=== PATIENT | female | born 1980 | race American Indian/Alaskan Native ===

== ENCOUNTER 2017-02-28 19:53 | Emergency (ER) | payer MEDICAID ==
[2017-03-01 00:13] VITALS: BP 110/69
[2017-03-01] MEDS ORDERED: PHENERGAN/CODEINE 6.25-10 MG/5ML PO ONE (01:09)
[2017-03-01] MEDS ORDERED: TORADOL IM ONE (01:09)
--- NOTE | 2017-03-01 01:14 | Emergency Department Report ---
- General Chief Complaint: Upper Respiratory Infection Stated Complaint: HEAD COLD, HEADACHES Source: patient Mode of arrival: Ambulatory Limitations: No Limitations - History of Present Illness Initial Comments: 36 year old female presents to ED with runny nose, congestion, headache, productive cough and bodyaches. patient denies fevers or sore throat. patient is stable, neurologically intact and in no acute distress. patient has no history of COPD or diabetes. MD Complaint: cough, rhinorrhea, nasal congestion -: Gradual Severity: mild Quality: other (congestioni) Consistency: constant Associated Symptoms: chills, headache, rhinorrhea, nasal congestion, cough. denies: chest pain, shortness of breath, abdominal pain, nausea, vomiting - Related Data Previous Rx's Medication Instructions Recorded Last Taken Type Cetirizine HCl [ZyrTEC] 10 mg PO Q24HR #5 capsule 03/01/17 Unknown Rx Fluticasone [Flonase] 1 spray NS QDAY #1 bottle 03/01/17 Unknown Rx Allergies Allergy/AdvReac Type Severity Reaction Status Date / Time No Known Allergies Allergy Verified 03/01/17 01:20 ED Review of Systems ROS: Stated complaint: HEAD COLD, HEADACHES Other details as noted in HPI Constitutional: denies: chills, fever Eyes: denies: eye pain, eye discharge, vision change ENT: congestion. denies: ear pain, throat pain Respiratory: cough. denies: shortness of breath, wheezing Cardiovascular: denies: chest pain, palpitations Endocrine: no symptoms reported Gastrointestinal: denies: abdominal pain, nausea, diarrhea Genitourinary: denies: urgency, dysuria, discharge Musculoskeletal: denies: back pain, joint swelling, arthralgia Skin: denies: rash, lesions Neurological: headache. denies: weakness, paresthesias Psychiatric: denies: anxiety, depression Hematological/Lymphatic: denies: easy bleeding, easy bruising ED Past Medical Hx - Past Medical History Previous Medical History?: No - Surgical History Additional Surgical History: C- section X 2 - Social History Smoking Status: Never Smoker Substance Use Type: None - Medications Home Medications: Home Medications Medication Instructions Recorded Confirmed Last Taken Type Cetirizine HCl [ZyrTEC] 10 mg PO Q24HR #5 capsule 03/01/17 Unknown Rx Fluticasone [Flonase] 1 spray NS QDAY #1 bottle 03/01/17 Unknown Rx ED Physical Exam - General Limitations: No Limitations General appearance: alert, in no apparent distress - Head Head exam: Present: atraumatic, normocephalic - Eye Eye exam: Present: normal appearance Pupils: Present: normal accommodation - ENT ENT exam: Present: normal exam, mucous membranes moist, TM's normal bilaterally - Neck Neck exam: Present: normal inspection - Respiratory Respiratory exam: Present: normal lung sounds bilaterally. Absent: respiratory distress, wheezes, rales, rhonchi, decreased breath sounds - Cardiovascular Cardiovascular Exam: Present: regular rate, normal rhythm. Absent: systolic murmur, diastolic murmur, rubs, gallop - GI/Abdominal GI/Abdominal exam: Present: soft, normal bowel sounds. Absent: tenderness, guarding - Extremities Exam Extremities exam: Present: normal inspection, full ROM - Back Exam Back exam: Present: normal inspection, full ROM - Neurological Exam Neurological exam: Present: alert, oriented X3, normal gait - Psychiatric Psychiatric exam: Present: normal affect, normal mood - Skin Skin exam: Present: warm, dry, intact, normal color. Absent: rash ED Course Vital Signs 02/28/17 03/01/17 21:29 00:10 Temperature 99.7 F H 98.4 F Pulse Rate 83 83 Respiratory 18 20 Rate Blood Pressure 119/79 Blood Pressure 119/79 110/69 [Left] O2 Sat by Pulse 98 97 Oximetry ED Medical Decision Making - Radiology Data Radiology results: report reviewed Chest xray 2 view There is no acute abnormality identified. - Medical Decision Making 36 year old female presents to ED with flu like symptoms. patient states she has had 5 days of productive cough, runny nose, nasal congestion, headache. patient will be discharged with zyrtec and flonase for viral syndrome symptoms and was notified to come back in 5 days if pain persists for evaluation of possible antibiotic therapy. patient is stable, neurologically intact and in no acute distress. Critical care attestation.: If time is entered above; I have spent that time in minutes in the direct care of this critically ill patient, excluding procedure time. ED Disposition Clinical Impression: Viral syndrome Disposition: DISCHARGED TO HOME OR SELFCARE Is pt being admited?: No Does the pt Need Aspirin: No Condition: Stable Instructions: Viral Syndrome (ED) Additional Instructions: Return to ED in 5 days if symptoms persist. Prescriptions: Cetirizine HCl [ZyrTEC] 10 mg PO Q24HR #5 capsule Fluticasone [Flonase] 1 spray NS QDAY #1 bottle Referrals: PRIMARY CARE, [Primary Care Provider] - 3-5 Days Forms: Work/School Release Form(ED)
--- NOTE | 2017-03-01 05:30 | XRay Report ---
FINAL REPORT EXAM: XR CHEST ROUTINE 2V HISTORY: cough TECHNIQUE: Chest, PA and lateral PRIORS: None. FINDINGS: The heart size is normal. Mediastinal contours are normal. Pulmonary vasculature is not congested. The lungs are clear. There are no pleural effusion seen. There is no evidence of pneumothorax. IMPRESSION: There is no acute abnormality identified.
== END 2017-03-01 06:15 | disposition home or self-care (01) ==
LOC: ED 19:53
DX: B34.9 Viral infection, unspecified (principal)
CPT/HCPCS: 71020; 81025; 87400; 96372; 99283; J1885

== ENCOUNTER 2017-06-20 17:10 | Emergency (ER) | payer MEDICAID, OTHER ==
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
[2017-06-20] MEDS ORDERED: FLEXERIL PO ONE (19:48)
[2017-06-20] MEDS ORDERED: NORCO 5/325 PO ONE (19:48)
[2017-06-20 22:58] VITALS: BP 115/71
== END 2017-06-20 20:15 | disposition home or self-care (01) ==
LOC: ED 17:10
DX: S16.1XXA Strain of muscle, fascia and tendon at neck level, initial encounter (principal); M25.511 Pain in right shoulder; R07.89 Other chest pain; V89.2XXA Person injured in unspecified motor-vehicle accident, traffic, initial encounter; Y93.89 Activity, other specified; Y92.89 Other specified places as the place of occurrence of the external cause; Y99.8 Other external cause status
CPT/HCPCS: 99282